=== PATIENT | female | born 1990 | race Hispanic/Latino ===

== ENCOUNTER 2021-08-12 18:24 | Emergency (ER) | payer SELFPAY ==
[~2021-08-12] VITALS: Ht 160 cm; Wt 63.5 kg
[2021-08-12 20:56] LABS: CLARITY,URINE CLEAR (CLEAR); COLOR,URINE YELLOW (YELLOW); LEUKOCYTE ESTERASE ,URINE NEGATIVE (NEGATIVE); NITRITE,URINE NEGATIVE (NEGATIVE)
[2021-08-12 20:57] LABS: KETONES,URINE NEGATIVE (NEGATIVE); PROTEIN,URINE DIPSTICK 2+ (NEGATIVE); URINE UROBILINOGEN 0.2 mg/dL (0.2 - 1)
[2021-08-12 21:01] LABS: BACTERIA,URINE RARE /HPF; EPITHELIAL CELLS,URINE MODERATE /LPF; RBC,URINE 0-5 /HPF (0-5); WBC,URINE (MAN) 0-5 /HPF (0-5)
[2021-08-12] MEDS ORDERED: HYDROMORPHONE 1MG/1ML INJ IV STA (21:56)
[2021-08-12] MEDS ORDERED: ONDANSETRON HCL INJ 2MG/ML 2ML 2 MG/ML VIAL IV STA (21:56)
[2021-08-12] MEDS ORDERED: LORAZEPAM INJ 2 MG/ML VIAL IV ONE (22:00)
[2021-08-12] MEDS ORDERED: LORAZEPAM INJ 2 MG/ML VIAL ONE (22:17)
[2021-08-12] MEDS ORDERED: ONDANSETRON HCL INJ 2MG/ML 2ML 2 MG/ML VIAL ONE (22:18)
[2021-08-12] MEDS ORDERED: HYDROMORPHONE 1MG/1ML INJ ONE (22:18)
[2021-08-12 23:36] VITALS: BP 103/66
== END 2021-08-12 23:52 | disposition home or self-care (01) ==
LOC: ER 18:40
DX: R68.84 Jaw pain (principal); S03.03XA Dislocation of jaw, bilateral, initial encounter; X58.XXXA Exposure to other specified factors, initial encounter
CPT/HCPCS: 21480; 70110; 70486; 81001; 81025; 99284; J1170; J2060; J2405

== ENCOUNTER 2023-10-22 16:42 | Emergency (ER) | payer SELFPAY ==
[~2023-10-22] VITALS: Ht 160 cm; Wt 63.5 kg
[2023-10-22 17:08] VITALS: O2SAT 100
[2023-10-22] MEDS ORDERED: IBUPROFEN600 MG PO (17:38)
[2023-10-22] MEDS ORDERED: TYLENOL325 MG PO (17:39)
== END 2023-10-22 17:53 | disposition home or self-care (01) ==
LOC: ER 16:49
DX: R51.9 Headache, unspecified (principal); F41.9 Anxiety disorder, unspecified
CPT/HCPCS: 99283